=== PATIENT | female | born 1960 | race African-American/Black ===

== ENCOUNTER → 2024-02-26 | Day surgery (SDC) | payer OTHER ==
[~2024-02-26] MED LIST: ATORVASTATIN CA10 MG PO; ESIDRIX25 MG PO; FENTANYL CITRATE/PF 100MCG/2 ML INJ ONE; LISINOPRIL-HCT1 EAC6 PO; LISINOPRIL10 MG PO; MIDAZOLAM HCL 2 MG/2 ML VIAL ONE; NAPROXEN PO; OMEPRAZOLE40 MG PO; ONDANSETRON PO; PROPOFOL IV EMULSION 10 MG/ML 20 ML VIAL ONE; ROSUVASTATIN CA20 MG PO; TOPAMAX25 MG PO; Z.0.LORAZEPAM2 MG PO
[2024-02-26] MEDS: LACTATED RINGER'S 1,000 ML ONE (12:03)
[2024-02-26 14:00] VITALS: BP 118/62; PULSE 55; RESP 16; TEMP 97.5; O2SAT 100
== END | disposition home or self-care (01) ==
LOC: OR 11:25
PROVIDERS: ATTEND Internal Medicine Gastroenterology
DX: K29.70 Gastritis, unspecified, without bleeding (principal); Z86.010 Personal history of colon polyps; K20.90 Esophagitis, unspecified without bleeding; K21.9 Gastro-esophageal reflux disease without esophagitis; R19.7 Diarrhea, unspecified; Z71.3 Dietary counseling and surveillance; I10 Essential (primary) hypertension; Z71.89 Other specified counseling; E78.5 Hyperlipidemia, unspecified; R56.9 Unspecified convulsions; Z01.810 Encounter for preprocedural cardiovascular examination; Z79.899 Other long term (current) drug therapy; Z68.24 Body mass index [BMI] 24.0-24.9, adult; Z86.73 Personal history of transient ischemic attack (TIA), and cerebral infarction without residual deficits
CPT/HCPCS: 43239; 93005; J2250; J2470; J2704; J3010; J7121